=== PATIENT | female | born 1995 | race Caucasian/White ===

== ENCOUNTER → 2020-03-18 13:34 | Outpatient (CLI) | payer OTHER, SELFPAY ==
[2020-03-18 13:22] VITALS: BMI 25.8
[2020-03-18 15:43] LABS: ALB/GLOB Ratio 1.3 RATIO (0.9-2.4); AST(SGOT) 24 U/L (15-37); Alanine Aminotransfer ALT/SGPT 32 U/L (13-56); Albumin, Serum 4.1 g/dL (3.2-5.0); Alkaline Phosphatase 82 U/L (45-117); Anion Gap 2 (5-15); BUN 11 mg/dL (7-18); BUN/Creat Ratio 12.7 RATIO (10-20); Chloride 108 mmol/L (98-107); Cholesterol 181 mg/dL (200); Creatinine, Serum 0.87 mg/dL (0.55-1.02); EST Glomerular Filtration Rate 84 mL/min (>60); Est Glom Filt Rate - Afr Amer 102 mL/min (>60); Globulin 3.1 g/dL (2.2-4.2); Glucose 70 mg/dL (74-106); High Density Lipoprotein 52 mg/dL; Potassium 3.4 mmol/L (3.5-5.1); Protein, Total 7.2 g/dL (6.4-8.2); Sodium Level 140 mmol/L (136-145); Triglycerides 104 mg/dL; Very Low Density Lipoprotein 21 mg/dL (5-40)
[2020-03-18 15:55] LABS: Absolute Lymphocyte Count 1.98 X10^3/uL (0.83-4.51); Absolute Neutrophil Count 3.7 X10^3/uL (2.0-7.7); Basophil# 0.03 X10^3/uL; Basophil% 0.5 % (0-1); Eosinophil# 0.02 X10^3/uL; Eosinophils% 0.3 % (0-5); Hematocrit 39.6 % (37-47); Lymphocyte # 1.98 X10^3/ul (4.0); Lymphocyte % 32.3 % (19-41); Mean Corp Hgb Conc 32.8 g/dL (32-36); Mean Corpuscular Hgb 29.1 pg (27.0-32.0); Mean Corpuscular Volume 88.8 fL (81-99); Mean Platelet Vol. 10.7 fl (6.2-12.0); Monocyte% 6.5 % (0-10); NRBC Flagged by Analyzer 0 % (0-5); Neutrophil # 3.68 X10^3/uL (2.7-7.7); Neutrophil % 60.1 % (47-70); Platelet Count 232 K/mm3 (150-450); RBC Distribution Width CV 12.6 % (11.6-14.6); RBC Distribution Width SD 40.8 fl (35.1-43.9); Red Blood Count 4.46 M/mm3 (4.2-5.4); White Blood Count 6.1 K/mm3 (4.4-11.0)
== END ==
PROVIDERS: PCP Internal Medicine; Visit Provider Internal Medicine
DX: Z00.00 Encounter for general adult medical examination without abnormal findings (principal)
CPT/HCPCS: 36415; 80053; 80061; 85025

== ENCOUNTER → 2020-05-31 | Outpatient (CLI) | payer OTHER, SELFPAY ==
[2020-03-18 13:22] VITALS: BMI 25.8
== END | disposition home or self-care (01) ==
LOC: LABSPEC 06-03 09:48
PROVIDERS: PCP Internal Medicine; Referring Provider Physician Assistant; Visit Provider Physician Assistant
DX: Z20.828 Contact with and (suspected) exposure to other viral communicable diseases (principal)
CPT/HCPCS: 87635; C9803; U0003

== ENCOUNTER → 2020-11-25 08:55 | Outpatient (CLI) | payer OTHER, SELFPAY ==
[2020-11-25 08:23] VITALS: BMI 26.2
[2020-11-25 12:11] LABS: Absolute Neutrophil Count 2.3 X10^3/uL (2.0-7.7); Basophil# 0.04 X10^3/uL; Basophil% 0.9 % (0-1); Eosinophil# 0.07 X10^3/uL; Eosinophils% 1.6 % (0-5); Hematocrit 42.5 % (37-47); Hemoglobin 13.6 g/dL (12.0-15.0); Lymphocyte % 36.3 % (19-41); Mean Corpuscular Hgb 28.2 pg (27.0-32.0); Mean Corpuscular Volume 88.2 fL (81-99); Mean Platelet Vol. 9.9 fl (6.2-12.0); Monocyte# 0.35 X10^3/uL; Monocyte% 7.9 % (0-10); NRBC Flagged by Analyzer 0 % (0-5); Neutrophil # 2.33 X10^3/uL (2.7-7.7); Neutrophil % 52.8 % (47-70); Platelet Count 308 K/mm3 (150-450); RBC Distribution Width CV 13.5 % (11.6-14.6); RBC Distribution Width SD 43.6 fl (35.1-43.9); Red Blood Count 4.82 M/mm3 (4.2-5.4); White Blood Count 4.4 K/mm3 (4.4-11.0)
[2020-11-25 12:20] LABS: Vitamin D,25 Hydroxy 30.9 ng/mL
[2020-11-25 12:47] LABS: Anion Gap 8 (5-15); BUN 11 mg/dL (7-18); BUN/Creat Ratio 13.8 RATIO (10-20); Calcium,Total 9.1 mg/dL (8.5-10.1); Chloride 105 mmol/L (98-107); EST Glomerular Filtration Rate 92 mL/min (>60); Est Glom Filt Rate - Afr Amer 111 mL/min (>60); Glucose 79 mg/dL (74-106); Sodium Level 140 mmol/L (136-145); Thyroid Stim Hormone (TSH) 2.02 uIU/mL (0.358-3.74)
== END ==
PROVIDERS: Physician Assistant; PCP Internal Medicine; Visit Provider Internal Medicine
DX: F41.9 Anxiety disorder, unspecified (principal); R53.83 Other fatigue
CPT/HCPCS: 36415; 80048; 82306; 84443; 85025

== ENCOUNTER → 2021-04-02 08:44 | Outpatient (CLI) | payer OTHER, SELFPAY ==
[2021-04-02 12:29] LABS: Cholesterol 186 mg/dL (200); High Density Lipoprotein 59 mg/dL; Triglycerides 103 mg/dL; Very Low Density Lipoprotein 21 mg/dL (5-40)
[2021-04-02 12:41] LABS: Glucose 100 mg/dL (74-106)
== END ==
LOC: BIMLAB 08:45
PROVIDERS: PCP Internal Medicine; Referring Provider Physician Assistant; Visit Provider Physician Assistant
DX: Z00.00 Encounter for general adult medical examination without abnormal findings (principal); Z13.220 Encounter for screening for lipoid disorders; Z13.6 Encounter for screening for cardiovascular disorders; Z13.1 Encounter for screening for diabetes mellitus
CPT/HCPCS: 36415; 80061; 82947

== ENCOUNTER → 2021-10-27 | Outpatient (CLI) | payer OTHER, SELFPAY ==
[2021-10-27 16:31] LABS: Absolute Lymphocyte Count 1.78 X10^3/uL (0.83-4.51); Absolute Neutrophil Count 1.7 X10^3/uL (2.0-7.7); Basophil# 0.03 X10^3/uL; Basophil% 0.8 % (0-1); Eosinophil# 0.08 X10^3/uL; Hematocrit 36.8 % (37-47); Lymphocyte # 1.78 X10^3/ul (0.83-4.51); Lymphocyte % 45.2 % (19-41); Mean Corp Hgb Conc 32.6 g/dL (32-36); Mean Corpuscular Hgb 28.2 pg (27.0-32.0); Mean Corpuscular Volume 86.6 fL (81-99); Mean Platelet Vol. 10.7 fl (6.2-12.0); Monocyte# 0.34 X10^3/uL; Monocyte% 8.6 % (0-10); NRBC Flagged by Analyzer 0 % (0-5); Neutrophil # 1.71 X10^3/uL (2.7-7.7); Neutrophil % 43.4 % (47-70); Platelet Count 211 K/mm3 (150-450); RBC Distribution Width CV 13.2 % (11.6-14.6); RBC Distribution Width SD 41.2 fl (35.1-43.9); Red Blood Count 4.25 M/mm3 (4.2-5.4); White Blood Count 3.9 K/mm3 (4.4-11.0)
[2021-10-27 16:48] LABS: Amylase 48 U/L (25-115); Anion Gap 5 (5-15); BUN 11 mg/dL (7-18); BUN/Creat Ratio 13.9 RATIO (10-20); Calcium,Total 8.9 mg/dL (8.5-10.1); Chloride 111 mmol/L (98-107); Creatinine, Serum 0.79 mg/dL (0.55-1.02); EST Glomerular Filtration Rate 93 mL/min (>60); Est Glom Filt Rate - Afr Amer 112 mL/min (>60); Glucose 84 mg/dL (74-106); Lipase 86 U/L (73-393); Potassium 4.1 mmol/L (3.5-5.1); Sodium Level 141 mmol/L (136-145)
== END | disposition home or self-care (01) ==
LOC: BIMLAB 15:41
PROVIDERS: Physician Assistant; PCP Internal Medicine; Visit Provider Internal Medicine
DX: R10.9 Unspecified abdominal pain (principal)
CPT/HCPCS: 36415; 80048; 82150; 83690; 85025

== ENCOUNTER 2022-01-31 02:05 | Emergency (ER) | payer OTHER, SELFPAY ==
[2022-01-31 02:07] VITALS: BP 122/79; PULSE 77; RESP 16; TEMP 37; O2SAT 98; BMI 31.3
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
[2022-01-31] MEDS: Lidocaine/Epi/Tetracaine 50 ML 1 APPLIC TOPICAL (03:04)
[2022-01-31] MEDS: Amox/Clavulanate 875 MG Tablet PO (03:30)
[2022-01-31] MEDS: Diphth,Pertuss(Acell),Tet Vac 0.5 ML Vial IM (03:31)
== END 2022-01-31 03:54 | disposition home or self-care (01) ==
PROVIDERS: Emergency Provider Emergency Medicine; PCP Internal Medicine; Visit Provider Emergency Medicine
DX: S01.511A Laceration without foreign body of lip, initial encounter (principal); W55.01XA Bitten by cat, initial encounter; Y92.019 Unspecified place in single-family (private) house as the place of occurrence of the external cause; Y99.0 Civilian activity done for income or pay; Z23 Encounter for immunization; J45.909 Unspecified asthma, uncomplicated; Z79.899 Other long term (current) drug therapy
CPT/HCPCS: 12011; 90471; 90715; 99283

== ENCOUNTER → 2022-11-27 | Outpatient (CLI) | payer OTHER, SELFPAY ==
[2022-11-27 12:50] LABS: Absolute Lymphocyte Count 2.12 X10^3/uL (0.83-4.51); Absolute Neutrophil Count 2.6 X10^3/uL (2.0-7.7); Basophil# 0.04 X10^3/uL; Basophil% 0.8 % (0-1); Eosinophil# 0.11 X10^3/uL; Eosinophils% 2.1 % (0-5); Hematocrit 37.5 % (37-47); Hemoglobin 11.7 g/dL (12.0-15.0); Lymphocyte # 2.12 X10^3/ul (0.83-4.51); Lymphocyte % 40.8 % (19-41); Mean Corp Hgb Conc 31.2 g/dL (32-36); Mean Corpuscular Hgb 26.8 pg (27.0-32.0); Mean Corpuscular Volume 85.8 fL (81-99); Mean Platelet Vol. 10.9 fl (6.2-12.0); Monocyte# 0.36 X10^3/uL; Monocyte% 6.9 % (0-10); NRBC Flagged by Analyzer 0 % (0-5); Neutrophil # 2.56 X10^3/uL (2.7-7.7); Neutrophil % 49.2 % (47-70); Platelet Count 254 K/mm3 (150-450); Red Blood Count 4.37 M/mm3 (4.2-5.4); White Blood Count 5.2 K/mm3 (4.4-11.0)
[2022-11-27 13:18] LABS: ALB/GLOB Ratio 0.9 RATIO (0.9-2.4); AST(SGOT) 16 U/L (15-37); Alanine Aminotransfer ALT/SGPT 23 U/L (13-56); Albumin, Serum 3.2 g/dL (3.2-5.0); Alkaline Phosphatase 66 U/L (45-117); Anion Gap 6 (5-15); BUN 11 mg/dL (7-18); BUN/Creat Ratio 13.2 RATIO (10-20); Calcium,Total 8.7 mg/dL (8.5-10.1); Chloride 109 mmol/L (98-107); Cholesterol 196 mg/dL (200); Creatinine, Serum 0.83 mg/dL (0.55-1.02); EST Glomerular Filtration Rate 86 mL/min (>60); Est Glom Filt Rate - Afr Amer 105 mL/min (>60); Globulin 3.6 g/dL (2.2-4.2); Glucose 88 mg/dL (74-106); High Density Lipoprotein 50 mg/dL; Potassium 4.1 mmol/L (3.5-5.1); Protein, Total 6.8 g/dL (6.4-8.2); Sodium Level 138 mmol/L (136-145); Triglycerides 117 mg/dL; Very Low Density Lipoprotein 23 mg/dL (5-40)
== END | disposition home or self-care (01) ==
LOC: BIMLAB 08:16
PROVIDERS: PCP Internal Medicine; Visit Provider Internal Medicine
DX: Z00.00 Encounter for general adult medical examination without abnormal findings (principal)
CPT/HCPCS: 36415; 80053; 80061; 85025

== ENCOUNTER → 2023-12-08 | Outpatient (CLI) | payer OTHER, SELFPAY ==
[2023-12-08 12:24] LABS: Absolute Lymphocyte Count 1.82 X10^3/uL (0.83-4.51); Absolute Neutrophil Count 2.7 X10^3/uL (2.0-7.7); Basophil# 0.04 X10^3/uL; Basophil% 0.8 % (0-1); Eosinophil# 0.05 X10^3/uL; Lymphocyte # 1.82 X10^3/ul (0.83-4.51); Lymphocyte % 36.7 % (19-41); Mean Corp Hgb Conc 32.6 g/dL (32-36); Mean Corpuscular Hgb 28.2 pg (27.0-32.0); Mean Corpuscular Volume 86.5 fL (81-99); Mean Platelet Vol. 10.7 fl (6.2-12.0); Monocyte# 0.39 X10^3/uL; Monocyte% 7.9 % (0-10); NRBC Flagged by Analyzer 0 % (0-5); Neutrophil # 2.65 X10^3/uL (2.7-7.7); Neutrophil % 53.4 % (47-70); Platelet Count 245 K/mm3 (150-450); RBC Distribution Width CV 14.3 % (11.6-14.6); RBC Distribution Width SD 44.9 fl (35.1-43.9); Red Blood Count 4.97 M/mm3 (4.2-5.4)
[2023-12-08 13:15] LABS: ALB/GLOB Ratio 1.2 RATIO (0.9-2.4); AST(SGOT) 23 U/L (15-37); Alanine Aminotransfer ALT/SGPT 32 U/L (13-56); Albumin, Serum 4.2 g/dL (3.2-5.0); Alkaline Phosphatase 105 U/L (45-117); Anion Gap 8 (5-15); BUN 13 mg/dL (7-18); BUN/Creat Ratio 13.4 RATIO (10-20); Calcium,Total 9.6 mg/dL (8.5-10.1); Chloride 106 mmol/L (98-107); Cholesterol 196 mg/dL (200); Creatinine, Serum 0.97 mg/dL (0.55-1.02); EST Glomerular Filtration Rate 72 mL/min (>60); Est Glom Filt Rate - Afr Amer 87 mL/min (>60); Globulin 3.5 g/dL (2.2-4.2); Glucose 97 mg/dL (74-106); High Density Lipoprotein 56 mg/dL; Potassium 3.9 mmol/L (3.5-5.1); Protein, Total 7.7 g/dL (6.4-8.2); Sodium Level 139 mmol/L (136-145); Triglycerides 73 mg/dL; Very Low Density Lipoprotein 15 mg/dL (5-40)
== END | disposition home or self-care (01) ==
LOC: BIMLAB 09:21
PROVIDERS: PCP Internal Medicine; Visit Provider Internal Medicine
DX: Z00.00 Encounter for general adult medical examination without abnormal findings (principal)
CPT/HCPCS: 36415; 80053; 80061; 85025

== ENCOUNTER 2024-11-15 17:07 | Emergency (ER) | payer OTHER, SELFPAY ==
[2024-11-15] VITALS (7 sets, daily range): BP systolic 102–134; BP diastolic 51–84; PULSE 60–115; RESP 15–19; TEMP 36.6–36.8; O2SAT 97–99; BMI 27.1
--- NOTE | 2024-11-15 18:09 | EKG12_ITS ---
Test Reason : NEAR SYNCOPAL Blood Pressure : */* mmHG Vent. Rate : 61 BPM Atrial Rate : 61 BPM P-R Int : 124 ms QRS Dur : 92 ms QT Int : 406 ms P-R-T Axes : 39 17 24 degrees QTcB Int : 408 ms Normal sinus rhythm Normal ECG Confirmed by JACKY MONTESINOS ([id number]), state editor WANDA BHATIA ([id number]) on 11/20/2024 7:30:09 AM Referred By: Confirmed By: JACKY MONTESINOS
--- NOTE | 2024-11-15 18:20 | RAD_ITS ---
PROCEDURE: CHEST 1 VIEW (PORTABLE) 11/15/2024 REASON FOR EXAM: NEAR SYNCOPE TECHNIQUE: Frontal view of the chest. COMPARISON: None FINDINGS: Hardware: None Heart: The heart size is normal. Lungs: The lungs are clear. Bones: The bones are unremarkable. Other: RAD/Chest 1 View (Portable) IMPRESSION: No Acute Findings. Reading Location: [facility]
--- NOTE | 2024-11-15 18:23 | EX.ED.DYSGE1 ---
HPI History of Present Illness Chief Complaint: Syncope Informant: patient and spouse/S.O. Narrative Narrative: 29-year-old female presenting to the emergency room following a near syncopal event. Patient states she got up this morning did work in the barn and then took a nap. She had just finished taking a shower when she was getting ready and started feeling very lightheaded/dizzy. She states she got very sweaty developed nausea and states her vision went black. Symptoms eventually resolved and she returned back to baseline. She did not experience any pain cramping or palpitations. This is the third time in 2 months that she has experienced this. She states that she takes cetirizine and no other medications. She routinely does strength and cardio training has not had any events while working out. No family history of sudden . [facility] Medical History Elevated bilirubin Preventative health care COVID-19 vaccine series completed Allergy Asthma Home Medications ?Medication ?Instructions ?Recorded ?Last Taken ?Type cetirizine 10 mg tablet (All Day 10 mg PO DAILY 03/18/20 Unknown History Allergy (cetirizine)) Allergy/AdvReac Type Severity Reaction Status Date / Time cashew nut Allergy Hives Verified 11/15/24 17:11 corn Allergy Hives Verified 11/15/24 17:11 oats Allergy Hives Verified 11/15/24 17:11 pecan nut Allergy Hives Verified 11/15/24 17:11 sunflower seed Allergy Hives Verified 11/15/24 17:11 Family History Grandfather Diabetes Myocardial infarction Cancer Colon cancer Father Hypertension Grandmother Breast cancer Surgical History History of tonsillectomy Social History housing: apartment Smoking Status: Never smoker alcohol intake: current alcohol intake frequency: a few times a month substance use type: does not use what type of physical activity do you participate in: running and weight training frequency: 5-6 times per week ROS ROS ED ROS Narrative Sudden onset lightheadedness sweating loss of vision Constitutional Constitutional ED: Denies chills, fever(s) or weight loss Eyes Eyes: Denies change in vision or diplopia ENT ENT ED: Denies ear pain, rhinorrhea or sore throat Cardiovascular Cardiovascular: Reports other Details: Near syncope ; Denies chest pain, orthopnea, palpitations or racing heartbeat Respiratory/Chest Respiratory/Chest: Denies cough, dyspnea or orthopnea Gastrointestinal Gastrointestinal: Denies abdominal pain, diarrhea, nausea or vomiting Genitourinary Genitourinary ED: Denies dysuria, hematuria or urinary frequency Musculoskeletal Musculoskeletal: Denies arthralgias or myalgias Integumentary Denies abscess or rash Neurologic Neurologic: Denies headache(s) or weakness Psychiatric Psychiatric: Denies anxiety, depression, suicidal ideation or suicidal thoughts Endocrine Endocrinology: Denies polydipsia, polyphagia or polyuria Allergic/Immunologic Allergic/Immunologic ED: Denies mouth swelling, tongue swelling or urticaria EXAM Physical Exam Const Vital Signs: 11/15/24 17:08 11/15/24 17:19 11/15/24 18:07 Temperature 98.2 F Temperature Source Oral Pulse Rate 87 62 Pulse Rate [Lying] Pulse Rate [Standing (for 1 minute prior to obtaining)] Respiratory Rate 18 16 Respiratory Pattern Normal Blood Pressure 110/76 114/75 Blood Pressure [Lying] Blood Pressure [Sitting (for 1 minute prior to obtaining)] Blood Pressure [Standing (for 1 minute prior to obtaining)] Blood Pressure Mean 87 88 Blood Pressure Mean [Lying] Blood Pressure Mean [Sitting (for 1 minute prior to obtaining)] Blood Pressure Mean [Standing (for 1 minute prior to obtaining)] Pulse Ox 99 98 Oxygen Delivery Method Room Air 11/15/24 18:09 11/15/24 19:00 11/15/24 20:00 Temperature Temperature Source Pulse Rate 72 61 Pulse Rate [Lying] 74 Pulse Rate [Standing (for 1 minute prior to obtaining)] 115 H Respiratory Rate 15 16 Respiratory Pattern Blood Pressure 107/75 111/68 Blood Pressure [Lying] 112/65 Blood Pressure [Sitting (for 1 minute prior to obtaining)] 119/75 Blood Pressure [Standing (for 1 minute prior to obtaining)] 134/84 H Blood Pressure Mean 85 82 Blood Pressure Mean [Lying] 80 Blood Pressure Mean [Sitting (for 1 minute prior to obtaining)] 89 Blood Pressure Mean [Standing (for 1 minute prior to obtaining)] 100 Pulse Ox 98 98 Oxygen Delivery Method 11/15/24 21:00 11/15/24 21:24 Temperature 97.8 F Temperature Source Pulse Rate 60 61 Pulse Rate [Lying] Pulse Rate [Standing (for 1 minute prior to obtaining)] Respiratory Rate 19 H 18 Respiratory Pattern Blood Pressure 109/61 102/51 L Blood Pressure [Lying] Blood Pressure [Sitting (for 1 minute prior to obtaining)] Blood Pressure [Standing (for 1 minute prior to obtaining)] Blood Pressure Mean 77 68 Blood Pressure Mean [Lying] Blood Pressure Mean [Sitting (for 1 minute prior to obtaining)] Blood Pressure Mean [Standing (for 1 minute prior to obtaining)] Pulse Ox 97 99 Oxygen Delivery Method Room Air Positive well nourished and well developed General Appearance ED: well developed and NAD HEENT Reports normocephalic, head/scalp atraumatic and moist mucous membranes Eyes PERRL and EOMs intact bilaterally Neck no lymphadenopathy, supple and no JVD Resp normal respiratory effort and clear to auscultation bilaterally Cardio regular rate, regular rhythm and no murmurs GI normal to inspection, nondistended, normoactive bowel sounds and non-tender Palpation: soft Back/Spine no CVA tenderness and normal ROM Extremity normal to inspection General Extremety ED: Negative for edema General Extremity: Negative for edema Neuro oriented x3 and CN's II-XII intact bilaterally Sensorium / Orientation: alert Motor Exam: strength 5/5 throughout Psych mental status grossly normal Mood & Affect: Negative for depressed or tearful Skin no rashes or lesions noted and no wounds MDM MDM MDM Narrative Medical decision making narrative: Differential diagnosis includes vasovagal near syncope dehydration electrolyte abnormalities cardiac dysrhythmia acute coronary syndrome anemia POTS Basic blood work including TSH magnesium and 2 sets of cardiac enzymes are negative. Hemoglobin 14.1. Interpretation the chest x-ray is no acute process. EKG is normal sinus rhythm. She has had no events on the monitor. She did become tachycardic when we stood her but blood pressure did not become hypotensive and she was normal very symptomatic. She has had no events on the monitor here. Spoke with the patient and we are going to have her follow-up with primary care in light of 3 similar episodes within 2 months. Patient is comfortable with this plan. Sabas's return instructions and home care should symptoms return. History & Record Review Discussion w/independent historian: Patient and Significant other Additional record(s) reviewed:: Prior outpatient record, Prior ED visit and Prior labs Lab Data Attestation: I reviewed the patient's lab results. Labs: Laboratory Results - last 24 hr 11/15/24 11/15/24 17:24 19:52 WBC 5.8 RBC 5.02 Hgb 14.1 Hct 43.2 MCV 86.1 MCH 28.1 MCHC 32.6 RDW Std Deviation 44.5 H RDW Coeff of Rafiq 14.2 Plt Count 247 MPV 10.8 Immature Gran % (Auto) 0.200 Neut % (Auto) 54.6 Lymph % (Auto) 36.0 [place] % (Auto) 6.9 Eos % (Auto) 1.6 Baso % (Auto) 0.7 Absolute Neuts (auto) 3.2 Absolute Lymphs (auto) 2.08 Nucleated RBC % 0 Sodium 141 Potassium 3.6 Chloride 106 Carbon Dioxide 23.0 Anion Gap 13 BUN 10 Creatinine 0.95 Estim Creat Clear Calc 106.21 Est GFR (MDRD) Non-Af 83 BUN/Creatinine Ratio 11.0 Glucose 66 L Calcium 9.2 Magnesium 2.2 Total Bilirubin 1.07 AST 18 ALT 15 Alkaline Phosphatase 86 Troponin T High Sens < 6 Troponin T Hi Sens 2 Hr 6 Total Protein 7.4 Albumin 4.6 Globulin 2.8 Albumin/Globulin Ratio 1.7 TSH 2.930 Serum , Qual NEGATIVE Radiography Diagnostic Testing: Clinical Impression(s) from Imaging Studies Chest X-Ray 11/15/24 18:20 IMPRESSION: No Acute Findings. [facility] E[facility] Initial EKG: Attestation: I personally reviewed and interpreted this EKG as follows: Comments: Normal sinus rhythm ventricular rate of 60 bpm Discharge Plan Triage Chief Complaint: Syncope ED Provider: Triston Kauffman Dx/Rx/DC Orders Clinical Impression: Near syncope Instructions: ED Near-Fainting, Uncertain Cause Prescriptions: No Action cetirizine [All Day Allergy (cetirizine)] 10 mg tablet 10 mg PO DAILY Primary Care Provider: Edvin Velasquez Referrals: Edvin Velasquez MD [Primary Care Provider] - As soon as possible Print Language: [place] Disposition Disposition: Home, Self Care Discharge Date/Time: 11/15/24 21:25
[2024-11-15 18:35] LABS: Absolute Lymphocyte Count 2.08 X10^3/uL (0.83-4.51); Absolute Neutrophil Count 3.2 X10^3/uL (2.0-7.7); Basophil# 0.04 X10^3/uL; Basophil% 0.7 % (0-1); Eosinophil# 0.09 X10^3/uL; Eosinophils% 1.6 % (0-5); Hematocrit 43.2 % (37-47); Hemoglobin 14.1 g/dL (12.0-15.0); Lymphocyte # 2.08 X10^3/ul (0.83-4.51); Mean Corp Hgb Conc 32.6 g/dL (32-36); Mean Corpuscular Hgb 28.1 pg (27.0-32.0); Mean Corpuscular Volume 86.1 fL (81-99); Mean Platelet Vol. 10.8 fl (6.2-12.0); Monocyte% 6.9 % (0-10); NRBC Flagged by Analyzer 0 % (0-5); Neutrophil # 3.16 X10^3/uL (2.7-7.7); Neutrophil % 54.6 % (47-70); Platelet Count 247 K/mm3 (150-450); RBC Distribution Width CV 14.2 % (11.6-14.6); RBC Distribution Width SD 44.5 fl (35.1-43.9); Red Blood Count 5.02 M/mm3 (4.2-5.4); White Blood Count 5.8 K/mm3 (4.4-11.0)
[2024-11-15 18:49] LABS: Internal QC Validated? YES +Cl - CLEAR BKGD; Pregnancy, Serum, hCG Quali. NEGATIVE Negative; Record Kit Lot#, Serum Preg. 947241
[2024-11-15 18:52] LABS: Troponin T High Sensitivity < 6 ng/L (<=14)
[2024-11-15 19:15] LABS: ALB/GLOB Ratio 1.7 RATIO (0.9-2.4); AST(SGOT) 18 U/L (<=31); Alanine Aminotransfer ALT/SGPT 15 U/L (<=34); Albumin, Serum 4.6 g/dL (3.5-5.0); Alkaline Phosphatase 86 U/L (35-104); Anion Gap 13 (5-15); BUN 10 mg/dL (4-19); Calcium,Total 9.2 mg/dL (7.6-11.0); Chloride 106 mmol/L (98-108); Creatinine, Serum 0.95 mg/dL (0.70-1.20); EST Glomerular Filtration Rate 83 (>60); Estimated Creatinine Clearance 106.21 ml/min (50-250); Globulin 2.8 g/dL (2.2-4.2); Glucose 66 mg/dL (70-99); Magnesium 2.2 mg/dL (1.5-2.2); Potassium 3.6 mmol/L (3.3-5.1); Protein, Total 7.4 g/dL (5.9-8.4); Sodium Level 141 mmol/L (133-145); Total Bilirubin 1.07 mg/dL (0.00-1.30)
[2024-11-15 20:35] LABS: Troponin T High Sens 2 HR 6 ng/L (<=14)
== END 2024-11-15 21:25 | disposition home or self-care (01) ==
PROVIDERS: Emergency Provider Emergency Medicine; PCP Internal Medicine; Visit Provider Emergency Medicine
DX: R55 Syncope and collapse (principal); R00.0 Tachycardia, unspecified; J45.909 Unspecified asthma, uncomplicated
CPT/HCPCS: 71045; 80053; 83735; 84443; 84484; 84703; 85025; 93005; 99284; A4216

== ENCOUNTER → 2024-11-28 | Outpatient (CLI) | payer OTHER, SELFPAY ==
[2024-12-01 17:08] LABS: C-Peptide 2.1 ng/mL (1.1-4.4); Growth Hormone 3.5 ng/mL (0.0-10.0); Insulin Level 8.6 uIU/mL (2.6-24.9)
== END | disposition home or self-care (01) ==
LOC: BIMLAB 14:51
PROVIDERS: PCP Internal Medicine; Referring Provider Physician Assistant; Visit Provider Physician Assistant
DX: E16.2 Hypoglycemia, unspecified (principal); R55 Syncope and collapse
CPT/HCPCS: 36415; 83003; 83525; 84681

== ENCOUNTER → 2024-12-19 | Outpatient (CLI) | payer OTHER, SELFPAY | END | disposition home or self-care (01) | PROVIDERS: PCP Internal Medicine; Referring Provider Physician Assistant; Visit Provider Physician Assistant | DX: R42 Dizziness and giddiness (principal) | CPT/HCPCS: 93225; 93226 ==

== ENCOUNTER → 2025-01-23 | Outpatient (CLI) | payer OTHER, SELFPAY ==
--- NOTE | 2025-01-23 12:56 | ECHOD_ITS ---
Reason For Study Reason For Study: Arrhythmia Procedure This was a 2D Doppler, Color Flow transthoracic echocardiogram. Exam performed in department. Left Ventricle Normal LV size. The left ventricular ejection fraction is 65 %. No regional wall motion abnormalities noted. Right Ventricle Normal RV size. Normal systolic function. Atria Normal left atrium. Normal right atrium. Mitral Valve Normal mitral valve. Tricuspid Valve Normal tricuspid valve. Mild tricuspid valve insufficiency. Pulmonary artery systolic pressure is 26 mmHg. Aortic Valve Normal aortic valve. Pulmonic Valve Normal pulmonic valve. Great Vessels Normal aortic root. The pulmonary artery is normal size. Inferior vena cava collapse with respiration. Pericardium/Pleural No pericardial effusion. MMode/2D Measurements & Calculations LVIDd: 5.4 cm IVSd: 0.87 cm Ao root diam: 3.0 cm LVIDs: 3.3 cm LVPWd: 0.69 cm RVDd: 3.8 cm FS: 39.2 % LAV(MOD-bp): 51.7 ml LVAd ap4: 35.9 cm2 SV(MOD-sp4): 83.2 ml LAV(MOD-bp) Indexed: 25.6 ml/m2 LVLd ap4: 8.5 cm SI(MOD-sp4): 41.3 ml/m2 LAV(MOD-sp2): 47.3 ml EDV(MOD-sp4): 124.5 ml LAV(MOD-sp4): 46.5 ml EDV(sp4-el): 128.6 ml LVAs ap4: 18.3 cm2 LVLs ap4: 7.1 cm ESV(MOD-sp4): 41.3 ml ESV(sp4-el): 40.2 ml EF(MOD-sp4): 66.9 % EF(sp4-el): 68.8 % SV(sp4-el): 88.4 ml LA A4 area: 18.5 cm2 LA dimension(2D): 4.0 cm RA A4 area: 14.8 cm2 TAPSE: 2.3 cm Time Measurements MV dec time: 0.18 sec Doppler Measurements & Calculations MV E max rj: 95.2 cm/sec Lat Peak E' Rj: 26.7 cm/sec Med Peak E' Rj: 16.3 cm/sec MV A max rj: 44.5 cm/sec E/E' lat: 3.6 E/E' med: 5.8 MV E/A: 2.1 MV V2 max: 116.5 cm/sec MV P1/2t max rj: 118.6 cm/sec Ao V2 max: 173.8 cm/sec MV max P.4 mmHg MV P1/2t: 71.5 msec Ao max P.1 mmHg MV V2 mean: 44.4 cm/sec Ao V2 mean: 116.7 cm/sec MV mean P.1 mmHg MV dec slope: 485.6 cm/sec2 Ao mean P.3 mmHg MV V2 VTI: 43.8 cm MVA(P1/2t): 3.1 cm2 Ao V2 VTI: 37.8 cm AV (velocity ratio): 0.77 LV V1 max: 122.4 cm/sec PA V2 max: 113.8 cm/sec TR max rj: 243.1 cm/sec LV V1 max P.0 mmHg PA V2 mean: 75.9 cm/sec TR max P.6 mmHg LV V1 mean P.2 mmHg LV V1 mean: 83.5 cm/sec LV V1 VTI: 29.1 cm ECHO/Echo Complete Interpretation Summary Normal LV size. The left ventricular ejection fraction is 65 %. Mild tricuspid valve insufficiency. Structurally normal valves. Ordering Physician: Karri Kingston Referring Physician: Karri Kingston Performed By: Ernesto Arias RCS
== END | disposition home or self-care (01) ==
LOC: CVS 12:56
PROVIDERS: PCP Internal Medicine; Referring Provider Physician Assistant; Visit Provider Physician Assistant
DX: R94.31 Abnormal electrocardiogram [ECG] [EKG] (principal)
CPT/HCPCS: 93306

== ENCOUNTER → 2025-01-30 | Outpatient (CLI) | payer OTHER, SELFPAY ==
[2025-01-29 13:30] LABS: Hematocrit 38.6 % (37-47); Hemoglobin 12.8 g/dL (12.0-15.0); Immature Granulocytes Count 0.010 X10^3/uL (0.0-0.0); Mean Corp Hgb Conc 33.2 g/dL (32-36); Mean Corpuscular Volume 84.6 fL (81-99); Mean Platelet Vol. 10.0 fl (6.2-12.0); NRBC Flagged by Analyzer 0 % (0-5); Platelet Count 207 K/mm3 (150-450); RBC Distribution Width CV 14.0 % (11.6-14.6); RBC Distribution Width SD 43.4 fl (35.1-43.9); Red Blood Count 4.56 M/mm3 (4.2-5.4); White Blood Count 4.5 K/mm3 (4.4-11.0)
[2025-01-29 13:57] LABS: Internal QC Validated? YES +Cl - CLEAR BKGD; Pregnancy, Serum, hCG Quali. NEGATIVE Negative; Record Kit Lot#, Serum Preg. 0000947241
[2025-01-29 14:00] LABS: Anion Gap 11 (5-15); BUN 9 mg/dL (4-19); BUN/Creat Ratio 11.4 RATIO (10-20); Calcium,Total 9.0 mg/dL (7.6-11.0); Carbon Dioxide 22.1 mmol/L (21.0-32.0); Chloride 106 mmol/L (98-108); Glucose 93 mg/dL (70-99); Potassium 4.3 mmol/L (3.3-5.1)
--- NOTE | 2025-01-31 07:16 | PCM.TILTTABL ---
Staff Staff: Ann Salmeron and Saadia Golden Summary Pre Test Resting HR: 64 Pre Test Resting BP: 104/62 Minimum Test HR: 43 Maximum Test HR: 78 Minimum Test BP: 40/0 Maximum Test BP: 120/82 Reason for Test Termination: Syncope Physician Tilt Table Report Patient's Physicians Primary Care Physician: Edvin Velasquez Indications/Diagnosis: Syncope Procedure Comments: Patient was brought to the cardiac catheterization lab in the postabsorptive nonsedated state. Informed consent was obtained. Initial EKG demonstrated sinus rhythm with a rate of 54 bpm blood pressure is 104/62 mmHg. Patient was put in the 70 degree head upright tilt position. Patient continued to be observed and then after approximately 10 minutes patient started complaining of feeling warm having tunnel vision and being clammy going pale with a reduction in the heart rate down to 43 bpm and blood pressure dropping to 40 systolic. Patient was then laid back in the supine position with improvement in the heart rate and blood pressure. Final blood pressure was noted to be 114/71 mmHg with a heart rate of 56 bpm. The patient did develop sinus rhythm, sinus bradycardia and then a junctional rhythm during the test. Summary: 70 degree head upright tilt table test with evidence of vasovagal syncope.
[2025-01-31 07:21] VITALS: BP 104/62; BP 120/82; BP 40/0
== END | disposition home or self-care (01) ==
LOC: CVS 10:37
PROVIDERS: PCP Internal Medicine; Referring Provider Physician Assistant; Visit Provider Physician Assistant
DX: R55 Syncope and collapse (principal); R42 Dizziness and giddiness
CPT/HCPCS: 36415; 80048; 84703; 85025; 93660; A4216